=== PATIENT | male | born 1930 | race Caucasian/White ===

== ENCOUNTER 2017-11-01 13:50 | Outpatient (CLI) | payer MEDICARE, OTHER ==
--- NOTE | 2017-11-01 14:51 | XRAY Report ---
THREE VIEW LUMBAR SPINE: 11/01/2017 CLINICAL INDICATION: Pain. FINDINGS: AP, lateral, cone down views of the lumbar spine demonstrate degenerative disk and facet disease, with disk space narrowing worst at L4-L5. There is mild degenerative dextroscoliosis. The bowel gas pattern appears unremarkable. Vascular calcifications are seen. IMPRESSION: DEGENERATIVE DISK AND FACET DISEASE, WITH MILD DEGENERATIVE DEXTROSCOLIOSIS. NO EVIDENCE OF ACUTE FRACTURE. TD: 11/01/2017 14:50
== END 2017-11-01 13:51 | disposition home or self-care (01) ==
LOC: DI 13:50
PROVIDERS: ATTEND Family Medicine
DX: M51.36 Other intervertebral disc degeneration, lumbar region (principal); M54.5 Low back pain; G89.29 Other chronic pain; M41.9 Scoliosis, unspecified
CPT/HCPCS: 72100

== ENCOUNTER 2018-05-24 09:21 | Outpatient (CLI) | payer MEDICARE, OTHER ==
[2018-05-24] MEDS ORDERED: BARIUM SULFATE 135 ML BOTTLE PO ONE (10:17)
[2018-05-24] MEDS ORDERED: BARIUM SULFATE 148 GM POWDER PO ONE (10:17)
--- NOTE | 2018-05-24 13:41 | XRAY Report ---
Reason: ESOPHAGEAL REFULX AND ACHALASIA Procedure Date: 05/24/2018 Accession Number: [id number] / [id number] Procedure: XR - Lumbar Spine 2 View CPT Code: FULL RESULT: EXAM: LUMBOSACRAL SPINE RADIOGRAPHY EXAM DATE: 05/24/2018 09:51 AM. CLINICAL HISTORY: Esophageal reflux and achalasia. COMPARISONS: None. TECHNIQUE: 3 views. FINDINGS: Alignment: Dextroconvex lumbar scoliosis, mild centered about L2/L3 when counting the lowest lumbar vertebral body as L5. Bones: Six [id number] lumbar vertebral bodies are present due to partial lumbarization of T12. No fractures or bone lesions. Disks: Mild multilevel loss of disk space height most pronounced at the apex of the lordotic curvature. Facets: There is moderate facet arthropathy throughout the lumbar spine. Sacroiliac Joints: Unremarkable. Soft Tissues: Aortic atherosclerosis. IMPRESSION: Degenerative changes with scoliosis as described. RADIA
--- NOTE | 2018-05-24 13:41 | XRAY Report ---
Reason: ESOPHAGEAL REFULX AND ACHALASIA Procedure Date: 05/24/2018 Accession Number: [id number] / [id number] Procedure: FL - Esophogram CPT Code: FULL RESULT: EXAM: BARIUM ESOPHAGRAM EXAM DATE: 05/24/2018 10:14 AM. CLINICAL HISTORY: Esophageal reflux and achalasia. COMPARISONS: None. TECHNIQUE: Routine double contrast esophagram. Fluoroscopy Time: 1 minute 8 seconds. Number of Images: 19. FINDINGS: Swallowing Mechanism: Normal. No tracheal aspiration or penetration. Esophageal Motility: There is an ineffective and uncoordinated esophageal stripping wave without esophageal spasm. Mucosa: Normal. No ulcerations or masses. Gastroesophageal Junction: A moderate-sized hiatal hernia is identified. Other: None. IMPRESSION: Esophageal dysmotility and hiatal hernia. RADIA
== END 2018-05-24 09:22 | disposition home or self-care (01) ==
LOC: DI 09:21
PROVIDERS: ATTEND Family Medicine
DX: M51.36 Other intervertebral disc degeneration, lumbar region (principal); M47.9 Spondylosis, unspecified; M41.9 Scoliosis, unspecified; K22.4 Dyskinesia of esophagus; K44.9 Diaphragmatic hernia without obstruction or gangrene; K21.9 Gastro-esophageal reflux disease without esophagitis; K22.0 Achalasia of cardia
CPT/HCPCS: 72100; 74220; A9270